=== PATIENT | male | born 1955 | race Caucasian/White ===

== ENCOUNTER 2023-03-02 19:00 | Emergency (ER) | payer MEDICARE, SELFPAY ==
[2023-03-02] VITALS (38 sets, daily range): BP systolic 114–151; BP diastolic 76–97; PULSE 59–82; RESP 10–18; TEMP 37.3; O2SAT 91–99
--- NOTE | ~2023-03-02 | CT_ITS ---
EXAMINATION: CT brain wo con DATE: 03/02/2023 19:38 INDICATION: Known subdural hematoma. TECHNIQUE: Computed tomography (CT) of the head was performed without intravenous contrast. The dose- length product was 681.00 mGy-cm. Automated exposure control and iterative reconstruction technique w ere employed. COMPARISON: None FINDINGS: There is a low-density extra-axial fluid collection involving the right frontal and parieta l locations. This likely represents a chronic subdural hematoma or subdural hygroma measuring up to 2 cm thickness. There is mild midline shift to the left measuring 8 mm. Basilar cisterns are patent. G eneralized atrophy. No acute infarction. Paranasal sinuses and mastoids are pneumatized. No depressed skull fractures. IMPRESSION: 1. Large right extra-axial fluid collection involving the right frontal and parietal locations measur ing up to 2 cm transversely with midline shift to the left measuring 8 mm. This likely represents a c hronic subdural hematoma or hygroma. Recommend comparison to previous CTs to assess for interval resendiz ge. Reviewed, dictated and finalized at location A. IMPRESSION: 1. Large right extra-axial fluid collection involving the right frontal and par ietal locations measuring up to 2 cm transversely with midline shift to the lef t measuring 8 mm. This likely represents a chronic subdural hematoma or hygroma . Recommend comparison to previous CTs to assess for interval change.
--- NOTE | 2023-03-02 19:19 | ED.HA ---
HPI - Headache General Chief Complaint: Headache Stated Complaint: Worsening brain bleed Time Seen by Provider: 03/02/23 19:19 Source: patient Mode of arrival: ambulatory Limitations: no limitations History of Present Illness HPI Narrative: 67-year-old male, smoker, COPD, hypertension, chronic back pain status post surgery was noted to have headache for around 10 days for which he went to the ER 3 weeks ago and was diagnosed to have a subdural hematoma. The patient was transferred to [facility] where he was managed conservatively. The patient was not on any anticoagulation But was taking aspirin and ibuprofen. After discharge the patient has been having ongoing headaches without any vomiting or focal neuro deficits. Over the past 3 days the patient has developed -- worsening headache. headache is predominantly frontal and radiates over the vertex up to the occiput. -- Decreased sensation on the right half of the body -- decreased strength of the right arm and the right leg he went to his primary care physician who ordered a CT scan of the head. The CT scan was noted to have increase in the size of the subdural hematoma following which he was transferred by EMS to our ER. The patient is hemodynamically stable with a blood pressure of 140/87. MD elicited complaint: headache Onset (ago): week(s) ( headache for the past 3 weeks which has gotten worse ) Onset description: gradually Location: frontal and occipital Severity: moderate Pain scale (0-10): 5 Quality & Timing: aching Exacerbating factors: none Relieving factors: nothing Associated symptoms: photophobia, numbness ( right-sided numbness) and weakness ( right-sided weakness) Related Data Home Medications Medication Instructions Recorded Confirmed alprazolam 0.5 mg tablet (Xanax) 0.5 mg PO TID PRN Anxiety 03/02/23 03/02/23 amlodipine 5 mg tablet 5 mg PO DAILY 03/02/23 03/02/23 escitalopram oxalate 5 mg tablet 5 mg PO DAILY 03/02/23 03/02/23 (Lexapro) gabapentin 800 mg tablet 800 mg PO TID 03/02/23 03/02/23 hydrochlorothiazide 25 mg tablet 25 mg PO DAILY 03/02/23 03/02/23 losartan 25 mg tablet 25 mg PO DAILY 03/02/23 03/02/23 morphine 15 mg tablet,extended 15 mg PO Q8H 03/02/23 03/02/23 release omeprazole 20 mg capsule,delayed 20 mg PO DAILY 03/02/23 03/02/23 release ondansetron HCl 4 mg tablet 4 mg PO Q6H 03/02/23 03/02/23 oxycodone 15 mg tablet,oral ONLY 15 mg PO Q6H PRN Pain 03/02/23 03/02/23 (not feeding tubes) pyridoxine (vitamin B6) 25 mg 25 mg PO DAILY 03/02/23 03/02/23 tablet vitamin B complex (B 1 tablet PO DAILY 03/02/23 03/02/23 Complex-Vitamin B12 tablet) vitamin E 268 mg (400 unit) capsule 268 mg PO DAILY 03/02/23 03/02/23 Allergies Allergy/AdvReac Type Severity Reaction Status Date / Time amoxicillin [From Augmentin] Allergy Hives Verified 03/02/23 19:38 clavulanic acid Allergy Hives Verified 03/02/23 19:38 [From Augmentin] prednisone Allergy Other Verified 03/02/23 19:38 Review of Systems Review of Systems: All systems reviewed & are unremarkable except as noted in HPI and below Constitutional: Constitutional: Reports as per HPI and Reports no additional constitutional complaints Eyes: Eyes: Reports as per HPI and Reports no additional eye complaints ENT: Reports system reviewed and no additional complaints, except as documented and Reports as per HPI Cardiovascular: Cardiovascular: Reports as per HPI and Reports no additional cardiovascular complaints Respiratory: Respiratory: Reports as per HPI, Reports no additional respiratory complaints, Reports cough and Reports dyspnea Gastrointestinal: Gastrointestinal: Reports as per HPI and Reports no additional gastrointestinal complaints Genitourinary: Genitourinary: Reports no additional male genitourinary complaints and Reports as per HPI Musculoskeletal: Musculoskeletal: Reports no additional musculoskeletal complaints and Reports as per HPI Integumentary/Br
[2023-03-02 19:39] LABS: Basophils Absolute Auto 0.03 K/mm3 (0.00-0.10); Basophils Percent Auto 0.4 % (0.0-1.0); Eosinophils Absolute Auto 0.03 K/mm3 (0.02-0.50); Eosinophils Percent Auto 0.4 % (1.0-6.0); Hematocrit 34.5 % (37.0-46.0); Immature Granulocyte Absolute 0.02 K/mm3 (0.00-0.00); Immature Granulocyte Percent A 0.3 % (0.0-0.0); Lymphocytes Absolute Auto 1.56 K/mm3 (1.10-4.50); Lymphocytes Percent Auto 20.8 % (18.0-42.0); Mean Corpuscular HGB Conc 34.8 g/dL (32.0-36.0); Mean Corpuscular Hemoglobin 34.2 pg (27.0-31.0); Mean Corpuscular Volume 98.3 fL (78.0-102.0); Mean Platelet Volume 8.2 fl (8.7-11.0); Monocytes Absolute Auto 0.45 K/mm3 (0.10-0.90); Neutrophils Absolute Auto 5.4 K/mm3 (1.7-7.2); Neutrophils Percent Auto 72.1 % (50.0-70.0); Platelet Count Result 384 K/mm3 (150-420); Red Blood Count 3.51 M/mm3 (4.70-6.10); Red Cell Distribution Width 11.9 % (11.6-14.4); White Blood Count 7.5 K/mm3 (4.8-10.8)
[2023-03-02 19:53] LABS: Partial Thromboplastin Time 30.5 SEC (23.90-30.70); Prothrombin Time 10.7 Seconds (9.50-12.10)
[2023-03-02] MEDS: HYDROmorphone HCL INJ (*CRX) 2 MG/ML VIAL 0.5 MG IV PUSH (19:55)
[2023-03-02] MEDS: ONDANSETRON INJ 4 MG/2 ML VIAL IV PUSH ×2 (19:56→23:45)
[2023-03-02 19:57] LABS: Alanine Aminotransferase 20 U/L (16-63); Albumin Level 3.4 g/dL (3.4-5.0); Alkaline Phosphatase 96 U/L (46-116); Anion Gap 4 mmol/L (8-16); Aspartate Amino Transferase 13 U/L (15-37); Bilirubin,Total 0.3 mg/dL (0.00-1.00); Blood Urea Nitrogen 5 mg/dL (7-18); Calcium 8.8 mg/dL (8.5-10.1); Carbon Dioxide 32 mmol/L (21-32); Chloride 97 mmol/L (98-108); Estimated CRCL calculation 87 ml/min; Estimated Glomerular Filt Rate > 60; Glucose 113 mg/dL (70-99); Osmolality Calculated 274 mOsm/kg (285-295); Potassium 3.8 mmol/L (3.5-5.1); Sodium 133 mmol/L (136-145); Total Protein 6.9 g/dL (6.4-8.2); Troponin I 4.6 ng/L (0.00-60.4)
[2023-03-02] MEDS: levETIRAcetam 500MG/NACL 100ML 500 MG/100 ML BAG 400 MG IVPB (21:05)
--- NOTE | 2023-03-02 21:05 | PC.NURSE ---
Pt remains A&Ox4 updated pt and family awaiting bed assignment at [facility]. [facility] initiated as ordered. Pt remains NSR with occasional unifocal PVC noted on monitoring manager.
--- NOTE | 2023-03-02 21:23 | PC.NURSE ---
contract coordinator at [facility] given updated vitals and patient condition at this time. No ETA on bed assignment.
--- NOTE | 2023-03-02 22:39 | PC.NURSE ---
Pt upset with wait for bed at [facility]. ERP to bedside. PT to sign out AMA.
--- NOTE | 2023-03-02 23:05 | PC.NURSE ---
Pt was going to sign out AMA due to length of waiting for bed while discontinuing IV access, [facility] calls with bed. Pt and spouse agreeable to transfer. New IV established. Pt requesting pain medication for headache. ERP aware will order.
[2023-03-02] MEDS: MORPHINE SULFATE (*CRX) 2 MG/ML INJ IV PUSH (23:46)
== END 2023-03-02 23:47 | disposition short-term general hospital (02) ==
PROVIDERS: Emergency Provider Internal Medicine Critical Care Medicine; PCP Family Medicine
DX: S06.5XAD Traumatic subdural hemorrhage with loss of consciousness status unknown, subsequent encounter (principal); R51.9 Headache, unspecified; J44.9 Chronic obstructive pulmonary disease, unspecified; I10 Essential (primary) hypertension; F41.9 Anxiety disorder, unspecified; F17.200 Nicotine dependence, unspecified, uncomplicated; Z79.891 Long term (current) use of opiate analgesic; Z79.899 Other long term (current) drug therapy; Z98.890 Other specified postprocedural states; X58.XXXD Exposure to other specified factors, subsequent encounter
CPT/HCPCS: 36415; 70450; 80053; 83605; 84484; 85025; 85610; 85730; 86850; 86900; 86901; 96365; 96375; 96376; 99285; J1170; J1953; J2270; J2405